=== PATIENT | male | born 1975 | race Hispanic/Latino ===

== ENCOUNTER 2022-02-26 17:46 | Emergency (ER) | payer SELFPAY ==
[2022-02-26 17:47] VITALS: PULSE 98; RESP 14; TEMP 36.8; O2SAT 97; BMI 31.7
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
--- NOTE | 2022-02-26 19:35 | ED.RN ---
pt unable to hold still for BP reading.
[2022-02-26] MEDS: HYDROcodone Bitartrate/Apap 5/325 Tablet PO (19:37)
== END 2022-02-26 19:38 | disposition home or self-care (01) ==
PROVIDERS: Emergency Provider Emergency Medicine; Visit Provider Emergency Medicine
DX: S09.90XA Unspecified injury of head, initial encounter (principal); S16.1XXA Strain of muscle, fascia and tendon at neck level, initial encounter; S80.11XA Contusion of right lower leg, initial encounter; S80.12XA Contusion of left lower leg, initial encounter; Y04.8XXA Assault by other bodily force, initial encounter
CPT/HCPCS: 70450; 72040; 99283